=== PATIENT | male | born 1990 | race Caucasian/White ===

== ENCOUNTER 2019-03-03 22:05 | Emergency (ER) | payer MEDICAID ==
[~2019-03-03] VITALS: Ht 175.3 cm; Wt 68.0 kg
[2019-03-03 22:10] VITALS: BP 129/90
--- NOTE | 2019-03-03 22:10 | NUR ---
TO BED # 06 AMBULATORY
--- NOTE | 2019-03-03 22:29 | NUR ---
28/M PRESENTS SELF TO ED, C/O 10/10 INTERMITTENT THROBBING L GREATER THAN R FOREHEAD PAIN, SINCE YESTERDAY MORNING. REPORTS MILD SWELLING NOTED, NO REDNESS, REPORTS TENDERNESS. REPORTS SUBJECTIVE FEVER/CHILLS, REPORTS "LITTLE BIT" COUGH. PT DENIES TRAUMA/INJURY. REPORTS SIMILAR EPISODE YEARS AGO, WAS TREATED WITH ABX WITH IMPROVEMENT. AOX4, SKIN NORMAL WARM DRY, RR EVEN AND UNLABORED. HX ASTHMA OTC TYLENOL WITHOUT RELIEF.
[2019-03-03] MEDS ORDERED: NACL 0.9% 1,000 ML IV ONE (22:30)
[2019-03-03] MEDS ORDERED: METOCLOPRAMIDE 10 MG/2 ML INJ VIAL IVP ONE (22:30)
[2019-03-03] MEDS ORDERED: diphenhydrAMINE 50 MG/ML VIAL IVP ONE (22:30)
[2019-03-03 23:37] VITALS: BP 129/90
--- NOTE | 2019-03-03 23:37 | NUR ---
Patient discharged with v/s stable. Written and verbal after care instructions given and explained. Patient verbalized understanding. Ambulatory with steady gait. All questions addressed prior to discharge. Advised to follow up with PMD.
== END 2019-03-03 23:37 | disposition home or self-care (01) ==
LOC: MED 22:05
DX: J01.90 Acute sinusitis, unspecified (principal); J45.909 Unspecified asthma, uncomplicated
CPT/HCPCS: 70450; 96374; 96375; 99284; J1200; J2765; J7030

== ENCOUNTER 2019-03-04 06:48 | Emergency (ER) | payer MEDICAID ==
[~2019-03-04] VITALS: Ht 175.3 cm; Wt 70.3 kg
[2019-03-04 06:50] VITALS: BP 150/98
--- NOTE | 2019-03-04 06:50 | NUR ---
TO BED # 07 AMBULATORY
--- NOTE | 2019-03-04 06:58 | NUR ---
BIB SELF REPORTS BEING SEEN HER YESTERDAY GIVEN NO RX TO GO HOME. STATES FREDY SINUS PRESSURE HEAD PAIN HAS NOT IMPROVED AND HE THINKS HE IS GETTING AN INFECTION, HE HAS HAD A SINUS INFECTION IN THE PAST AND STATES THIS FEELS THE SAME. BACK TODAY HOPING TO GET ABX AND DECONGESTION MEDICATION. DENIES SOB, DIFFICULTY BREATHING, OR FEVER. NO CHANGES IN VISION REPORTED. SIDE RAIL X1 UP, BED IN LOW LOCKED POSITION.
--- NOTE | 2019-03-04 07:05 | NUR ---
Received report from Fariha CARDENAS for transfer of care at this time.
[2019-03-04] MEDS ORDERED: DEXAMETHASONE 10 MG/ML VIAL IM ONE (07:15)
[2019-03-04] MEDS ORDERED: cefTRIAXone 1,000 MG in LIDOCAINE 1% ***ER ONLY *** 2.1 ML IM ONE (07:15)
[2019-03-04] MEDS ORDERED: cefTRIAXone 1,000 MG VIAL ONE (07:28)
[2019-03-04] MEDS ORDERED: LIDOCAINE MPF 1% 5mL VIAL ONE (07:30)
--- NOTE | 2019-03-04 07:45 | NUR ---
PT RESTING IN BED AT THIS TIME, LIGHTS DIMMED FOR PT COMFORT. HEADACHE 04/22 AT THIS TIME.
[2019-03-04 08:17] VITALS: BP 145/99
--- NOTE | 2019-03-04 08:18 | NUR ---
Patient discharged with v/s stable. Written and verbal after care instructions given and explained. Patient alert and verbalized understanding of instructions. Ambulatory with steady gait. All questions addressed prior to discharge. ID band removed. Patient advised to follow up with PMD. Rx of levaquin, fioricet, and prednisone given. Patient educated on indication of medication. Opportunity to ask questions provided and answered.
== END 2019-03-04 08:18 | disposition home or self-care (01) ==
LOC: MED 06:48
DX: J32.9 Chronic sinusitis, unspecified (principal); J45.909 Unspecified asthma, uncomplicated; I10 Essential (primary) hypertension
CPT/HCPCS: 96372; 99283; J1100; J0696; J2001

== ENCOUNTER 2019-03-08 01:08 | Emergency (ER) | payer MEDICAID ==
[~2019-03-08] VITALS: Ht 175.3 cm; Wt 74.8 kg
[2019-03-08 01:13] VITALS: BP 156/105
--- NOTE | 2019-03-08 01:15 | NUR ---
PT AMBULATORY TO ER LOBBY W/ STEADY GAIT IN STABLE CONDITION.
--- NOTE | 2019-03-08 01:53 | NUR ---
PT AMBULATED TO BED 1
--- NOTE | 2019-03-08 02:05 | NUR ---
28 Y/O M PRESENTED TO ED WITH C/O L EYE PAIN AND HEADACHE X5 DAYS. SYMPTOMS WORSENING YESTERDAY. 10/10 PAIN, SHARP, THROBBING, AND CONSTANT. PREVIOUSLY SEEN AND GIVEN ATB BUT PER PT NOT EFFECTIVE. EDEMA NOTED TO L EYEBROW. C/O BLURRED VISION IN L EYE. ERMD NOTIFIED. BEDRAIL X1 UP. WILL CONTINUE TO MONITOR.
[2019-03-08] MEDS ORDERED: HYDROcodone/APAP 5/325 MG 1 TAB TAB PO ONE (02:45)
[2019-03-08] MEDS ORDERED: cefTRIAXone 1,000 MG VIAL ONE (03:05)
[2019-03-08 03:17] LABS: BASOPHILS % (AUTO) 0.2 % (0.0-2.0); EOSINOPHILS # (AUTO) 0.9 K/uL (0-0.4); EOSINOPHILS % (AUTO) 7.9 % (0.0-4.0); HEMATOCRIT 43.4 % (36-52); HEMOGLOBIN 14.7 g/dL (12.0-18.0); LYMPHOCYTES # (AUTO) 2.6 K/uL (2.0-11.5); LYMPHOCYTES % (AUTO) 21.5 % (20.5-51.1); MEAN CORPUSCULAR HEMOGLOBIN 31 pg (27-31); MEAN CORPUSCULAR HGB CONC 34 g/dL (33-37); MEAN CORPUSCULAR VOLUME 90.5 fL (80-94); MONOCYTES # (AUTO) 0.8 K/uL (0.8-1.0); MONOCYTES % (AUTO) 6.5 % (1.7-9.3); NEUTROPHILS # (AUTO) 7.6 K/uL (1.8-7.7); NEUTROPHILS % (AUTO) 63.9 % (42.2-75.2); PLATELET COUNT (AUTO) 258 K/uL (140-450); RED CELL DISTRIBUTION WIDTH 13.3 % (11.6-13.7); WHITE BLOOD COUNT (AUTO) 11.9 K/uL (4.8-10.8)
[2019-03-08 03:28] LABS: ANION GAP 11.1 (8-16); CARBON DIOXIDE 26.8 mmol/L (21-32); CREATININE 1.2 mg/dL (0.7-1.3); POTASSIUM 3.9 mmol/L (3.5-5.1)
[2019-03-08] MEDS ORDERED: KETOROLAC 30 MG/ML VIAL IVP ONE (03:30)
--- NOTE | 2019-03-08 03:30 | NUR ---
PT ASLEEP. VISBLE CHEST RISE AND FALL. AROUSABLE TO NAME. WILL CONTINUE TO MONITOR.
[2019-03-08 03:33] LABS: ALBUMIN 3.3 g/dL (3.4-5.0); TOTAL BILIRUBIN 0.2 mg/dL (0.0-1.0)
== END 2019-03-08 04:10 | disposition home or self-care (01) ==
LOC: MED 01:08
DX: J32.9 Chronic sinusitis, unspecified (principal); J45.909 Unspecified asthma, uncomplicated
CPT/HCPCS: 36415; 80053; 85025; 96365; 96375; 99283; J0696; J1885; J7060